=== PATIENT | female | born 1960 | race Caucasian/White ===

== ENCOUNTER 2021-06-24 10:27 | Emergency (ER) | payer OTHER ==
[~2021-06-24] VITALS: Ht 167.6 cm; Wt 59.0 kg
--- NOTE | 2021-06-24 10:27 | NUR ---
PT BIBA TAKEN TO ER BED 6.
[2021-06-24 10:29] VITALS: BP 125/69
[2021-06-24] MEDS ORDERED: NACL 0.9% 1,000 ML IV ONE (10:40)
--- NOTE | 2021-06-24 10:42 | NUR ---
60 Y/O FEMALE BIBA FROM [facility] FOR C/O PO INTAKE. JOSEPH MEEHAN RN PT PSYCHIATRIST STATES PT HAS POOR PO INTAKE FOR X3DAYS. PT REFUSING AND ON A VOLUNTARY HOLD. DENIES FEVER/CHILLS. DENIES SOB. DENIES N/V/D. DENIES PAIN. BLOOD SUGAR EN ROUTE 118. PMH: SCHIZOPHRENIA, BIPOLAR, PARANOIA, DM, EPILEPSY, DEPRESSION NKA
[2021-06-24] MEDS ORDERED: VALPROATE SODIUM 500 MG in NACL 0.9% 100 ML IV ONE (10:50)
[2021-06-24] MEDS ORDERED: PHENYTOIN 100 MG/2 ML VIAL IVP ONE ×2 (10:50→11:57)
--- NOTE | 2021-06-24 10:55 | NUR ---
22 G IV ESTABLISHED IN L HAND
--- NOTE | 2021-06-24 10:58 | NUR ---
LAB AT BEDSIDE.
[2021-06-24 11:42] LABS: BASOPHILS % (AUTO) 0.2 % (0.0-2.0); EOSINOPHILS # (AUTO) 0.1 K/uL (0-0.4); EOSINOPHILS % (AUTO) 0.8 % (0.0-4.0); HEMATOCRIT 40.2 % (36-48); HEMOGLOBIN 13.8 g/dL (12.0-16.0); LYMPHOCYTES # (AUTO) 1.4 K/uL (2.5-16.5); LYMPHOCYTES % (AUTO) 16.5 % (20.5-51.1); MEAN CORPUSCULAR HEMOGLOBIN 30 pg (27-31); MEAN CORPUSCULAR HGB CONC 34 g/dL (33-37); MEAN CORPUSCULAR VOLUME 86.2 fL (80-94); MONOCYTES # (AUTO) 0.9 K/uL (0.8-1.0); MONOCYTES % (AUTO) 9.8 % (1.7-9.3); NEUTROPHILS # (AUTO) 6.4 K/uL (1.8-7.7); NEUTROPHILS % (AUTO) 72.7 % (42.2-75.2); PLATELET COUNT (AUTO) 304 K/uL (140-450); RED BLOOD CELL COUNT(AUTO) 4.66 MIL/uL (4.20-5.40); RED CELL DISTRIBUTION WIDTH 14.3 % (11.6-13.7); WHITE BLOOD COUNT (AUTO) 8.8 K/uL (4.8-10.8)
[2021-06-24] MEDS ORDERED: PHENYTOIN 100 MG/4 ML UDC ONE (11:54)
[2021-06-24] MEDS ORDERED: VALPROATE SODIUM 500 MG/5 ML VIAL IV ONE (11:58)
[2021-06-24 12:45] LABS: ANION GAP 24.1 (8-16); CARBON DIOXIDE 23.4 mmol/L (21-32); POTASSIUM 3.5 mmol/L (3.5-5.1)
[2021-06-24 12:46] LABS: CREATININE 0.6 mg/dL (0.6-1.3)
[2021-06-24 13:05] LABS: TOTAL BILIRUBIN 0.5 mg/dL (0.0-1.0)
[2021-06-24 13:06] LABS: ALBUMIN 3.2 g/dL (3.4-5.0); FREE T4 (FREE THYROXINE) 1.18 ng/dL (0.76-1.46); THYROID STIMULATING HORMONE 1.25 uIU/mL (0.34-3.74)
--- NOTE | 2021-06-24 13:39 | NUR ---
STRAIGHT CATH WAS DOEN 700 ML URINE WAL COLLECTED AND URINE DIP WAS DONE.
--- NOTE | 2021-06-24 15:01 | NUR ---
GAVE PATIENT JELLO AND APPLE JUICE BUT THE PATIENTS REFUSED TO EAT OR DRINK. DR SNEED WAS AT BEDSIDE.
--- NOTE | 2021-06-24 15:10 | NUR ---
CALLED [facility] AND SPOKE WITH KVNG BARTON. WAS TOLD WILL RECIEVE CALL IN 15 MIN IN REGARDS TO PATIENT TRANSFER BACK TO [facility]
--- NOTE | 2021-06-24 15:28 | NUR ---
SPOKE WITH ZORAN CALDERON FROM [facility]. PER ZORAN SHE WILL SET UP TRANSPORTATION FOR PATIENT TO RETURN TO [facility] AND WILL CALL BACK WITH ZANE ON TRANSPORATION
--- NOTE | 2021-06-24 15:52 | NUR ---
SPOKE WITH NATALIYA FROM [facility]. ETA FOR TRANSPORATION IS 30 MIN. NATALIYA ALSO REQUESTED FOR COPY OF LABS AND ANY MEDICATIONS GIVEN
--- NOTE | 2021-06-24 16:15 | NUR ---
The patient's care was reviewed and supervised by Ely Mendoza RN.
[2021-06-24 16:24] VITALS: BP 109/89
--- NOTE | 2021-06-24 16:27 | NUR ---
Patient to be transferred to [facility]. Is being transferred due to HIGHER LEVEL OF CARE. Receiving facility has accepting physician and available space. ER physician has signed transfer form. Patient or responsible constitution party has agreed to transfer and signed form. Patient belongings inventoried and will be sent with patient. Copy of nursing notes, lab reports, EKG, Physicians Orders and X-rays to be sent with patient. Report called to KVNG AN at receiving facility. [facility] ambulance service has been called for transfer. ETA is 40 MINUTES.
== END 2021-06-24 16:24 ==
LOC: MED 10:27
DX: E86.0 Dehydration (principal); R63.0 Anorexia; E11.9 Type 2 diabetes mellitus without complications; F32.9 Major depressive disorder, single episode, unspecified; F20.9 Schizophrenia, unspecified
CPT/HCPCS: 36415; 80053; 81002; 83036; 84439; 84443; 85025; 96361; 96365; 96375; 99285; J1165; J3490; J7030